=== PATIENT | female | born 1990 | race African-American/Black ===

== ENCOUNTER → 2017-09-27 | Outpatient (CLI) | payer OTHER ==
--- NOTE | 2017-09-27 13:59 | RADIOLOGY IMAGING REPORT ---
[place]AC[place] [facility] [place] NAME: Lashaun Solomon : 1990 MR: [id number] V: [id number] EXAM DATE: ORDERING PHYSICIAN: PAXTON COHEN TECHNOLOGIST: [place] [facility] [place] Patient: Lashaun Solomon : 1990 Visit/Account:[id number] Date of Sevice: 09/27/2017 GALLBLADDER HISTORY: Positive family history of gallbladder cancer, right upper quadrant pain started last week COMPARISON: None. FINDINGS: Gallbladder: Unremarkable; no stones or sludge. Liver: Negative. Common duct: Normal, 2.4 mm diameter. Pancreas: Partially obscured by bowel, visualized aspects unremarkable. Right kidney: Unremarkable as imaged measuring 9.8 cm in length. There is no demonstration of hydron ephrosis. The resistive index is 0.55 Upper abdominal aorta and IVC: Patent. Ascites: None visualized. IMPRESSION: Unremarkable right upper quadrant ultrasound Report Dictated By: Maty Garnica MD at 09/27/2017 1:52 PM Report E-Signed By: Maty Garnica MD at 09/27/2017 1:55 PM WSN:[id number]
== END ==
LOC: US 12:03
PROVIDERS: ATTEND Nurse Practitioner Family
DX: R10.11 Right upper quadrant pain (principal); R19.8 Other specified symptoms and signs involving the digestive system and abdomen; Z80.0 Family history of malignant neoplasm of digestive organs
CPT/HCPCS: 76705

== ENCOUNTER → 2017-11-03 | Outpatient (CLI) | payer OTHER ==
[~2017-11-03] MED LIST: SINCALIDE 5 MCG VIAL INJ ONE; WATER FOR INJ,STERILE 20 ML 20 ML ONE
--- NOTE | 2017-11-03 11:42 | RADIOLOGY IMAGING REPORT ---
FACILITY: [facility] - [place] PATIENT NAME: Lashaun Solomon : 1990 MR: [id number] V: [id number] EXAM DATE: ORDERING PHYSICIAN: PAXTON COHEN TECHNOLOGIST[place] [facility] [place] : 1990 Visit/Account:[id number] Date of Sevice: 11/03/2017 Nuclear Medicine Hepatobiliary Imaging with Gallbladder Stimulation HISTORY: Right upper quadrant abdominal pain TECHNIQUE: 6.2 mCi [id number] mebrofenin was injected intravenously. Multiple sequential gamma camera heidi ges of the abdomen were obtained for 60 minutes. At that time, Kinevac was injected intravenously and an additional 30 minutes of gamma camera imaging data was acquired. A computer-generated region of i nterest was placed around the gallbladder and time-activity curve for the gallbladder was derived. Th e gallbladder ejection fraction was calculated. Kinevac used: 3.1 mcg COMPARISON: Right upper quadrant ultrasound 09/27/2017 FINDINGS: Liver uptake and excretion: Normal Time to appearance: Bile ducts: 6 minutes. Gallbladder: 7 minutes. Duodenum: 16 minutes. Duodenal-gastric reflux / extravasation: None. Post IV Kinevac: Normal and prompt contraction of the gallbladder. Patient symptoms: Moderate nausea. Ejection fraction = 86% (normal range >35%). IMPRESSION: 1. Negative study for acute and chronic cholecystitis. 2. Normal gallbladder ejection fraction. Biliary dyskinesia is unlikely. Report Dictated By: Tess Caldwell MD at 11/03/2017 11:37 AM Report E-Signed By: Tess Caldwell MD at 11/03/2017 11:39 AM WSN:[email or web address]
== END ==
LOC: NUC 02:26
PROVIDERS: ATTEND Nurse Practitioner Family
DX: R10.11 Right upper quadrant pain (principal); R19.8 Other specified symptoms and signs involving the digestive system and abdomen; Z80.0 Family history of malignant neoplasm of digestive organs
CPT/HCPCS: 78226; A9537; J2805

== ENCOUNTER 2017-12-07 01:52 | Day surgery (SDC) | payer OTHER ==
[~2017-12-07] VITALS: Ht 167.6 cm; Wt 75.7 kg
[2017-12-07] VITALS (7 sets, daily range): BP systolic 96–115; BP diastolic 53–84
[~2017-12-07 01:52] MED LIST changes: +OMEP-137 PO; -SINCALIDE 5 MCG VIAL INJ ONE; -WATER FOR INJ,STERILE 20 ML 20 ML ONE
[2017-12-07] MEDS ORDERED: NORMOSOL R SOLN(*) 1000 ML BAG 1,000 ML IV PRN (08:00)
[2017-12-07] MEDS ORDERED: LIDOCAINE/SOD BICARB 8.4% SYR ID ONE (08:00)
[2017-12-07] MEDS ORDERED: PROPOFOL EMUL(*) 10MG/ML 20 ML 40 ML ONE (08:24)
== END 2017-12-07 10:48 | disposition home or self-care (01) ==
LOC: OR 01:52
PROVIDERS: ATTEND Internal Medicine Gastroenterology
DX: K44.9 Diaphragmatic hernia without obstruction or gangrene (principal); K20.9 Esophagitis, unspecified; K29.70 Gastritis, unspecified, without bleeding; A04.8 Other specified bacterial intestinal infections
CPT/HCPCS: 43239; 81025; 88305; 88313; 88344; J2704